=== PATIENT | male | born 1970 | race Caucasian/White ===

== ENCOUNTER 2024-12-08 07:28 | Emergency (ER) | payer OTHER ==
[2024-12-08 09:27] LABS: BILIRUBIN Negative (Negative); BLOOD Negative (Negative); CLARITY Clear (Clear); COLOR Yellow (Yellow); GLUCOSE Negative (Negative); KETONE Negative (Negative); LEUKO ESTERASE 2+ (Negative); NITRITE Negative (Negative); UROBILINOGEN 0.2 E.U./dl (0.0-1.0)
[2024-12-08] MEDS ORDERED: OMNICEF300 MG PO (09:37)
[2024-12-08] MEDS ORDERED: VIBRAMYCIN100 MG PO (09:37)
[2024-12-08 09:38] LABS: BACTERIA 1+; MUCOUS 1+; WBC 21-30 wbc/hpf (0-5)
== END 2024-12-08 09:51 | disposition home or self-care (01) ==
LOC: ED 07:28
PROVIDERS: Emergency Medicine
DX: N34.2 Other urethritis (principal); R30.0 Dysuria